=== PATIENT | female | born 2000 | race African-American/Black ===

== ENCOUNTER 2020-04-25 12:16 | Emergency (ER) | payer OTHER ==
[2020-04-25 12:43] LABS: Bilirubin Negative (Negative); Blood, Urine Small (Negative); Glucose, Urine (Dipstick) Negative (Negative); Ketone, Urine Negative (Negative); Leukocyte Moderate (Negative); Nitrite Negative (Negative); Protein, Urine (Dipstick) Negative (Neg-Trace); Specific Gravity, Urine 1.025 (1.005-1.030); Urobilinogen 0.2 mg/dL (Less than 2)
[2020-04-25 12:44] LABS: Clarity Hazy (Clear)
[2020-04-25 12:49] LABS: Bacteria/HPF 2+ HPF (None Seen); Squamous Epithelial 0-3 HPF (0-3)
[2020-04-25] MEDS ORDERED: Sterile Water 10 ML ONE (12:58)
[2020-04-25] MEDS ORDERED: cefTRIAXone\\ROCEPHIN 500 MG VIAL ONE (12:58)
[2020-04-27 21:08] LABS: Chlam.trachomatis by PCR,Urine Not Detected (NotDetected)
== END 2020-04-25 13:00 | disposition home or self-care (01) ==
LOC: BURERS 12:16
DX: N73.9 Female pelvic inflammatory disease, unspecified (principal)
CPT/HCPCS: 81003; 81015; 87086; 87491; 87591; 96372; 99283; J0696